=== PATIENT | female | born 1995 | race Caucasian/White ===

== ENCOUNTER → 2017-08-16 13:11 | Outpatient (CLI) | payer OTHER, SELFPAY ==
--- NOTE | 2017-08-16 13:15 | RAD_ITS ---
STUDY: X-RAY - LEFT ANKLE REASON FOR EXAM: Female, 22 years old. Injury with lateral ankle pain. TECHNIQUE: 3 view(s) of the ankle. COMPARISON: None. FINDINGS: Normal visualized distal tibia and fibula. Normal medial and lateral malleoli. Normal tibiotalar articulation and ankle mortise. Normal visualized talus and calcaneus. The visualized subtalar, talonavicular, calcaneocuboid and tarsal articulations are normal. The soft tissue structures are unremarkable. RAD/Ankle min 3 Views IMPRESSION: Normal x-ray examination of the ankle. Electronically Signed: Rene Bearden MD at 17:14 EDT , Service support ,
== END ==
PROVIDERS: Family Provider Pediatrics; PCP Pediatrics; Visit Provider Orthopaedic Surgery
DX: M25.572 Pain in left ankle and joints of left foot (principal)
CPT/HCPCS: 73610

== ENCOUNTER → 2017-09-06 16:25 | Outpatient (CLI) | payer OTHER, SELFPAY ==
--- NOTE | 2017-09-06 16:29 | MRI_ITS ---
STUDY: MRI LEFT ANKLE WITHOUT CONTRAST REASON FOR EXAM: Swelling and cracking, chronic left ankle sprains, symptoms for one year. TECHNIQUE: Standardized fat and water weighted pulse sequences were obtained in all 3 orthogonal planes. COMPARISON: Radiographs 08/16/2017. FINDINGS: Normal subcutis adipose space. Normal posterior tibialis tendon. Normal flexor digitorum longus tendon. Normal flexor hallucis longus tendon. Normal peroneus longus and brevis tendons. Normal tibialis anterior tendon. Normal extensor hallucis longus tendon. Normal extensor digitorum longus tendons. Normal Achilles tendon and teno-osseous insertion. Normal plantar fascia. Normal plantar calcaneal tubercles. Normal intrinsic muscles of the rearfoot. Normal distal tibiofibular syndesmotic ligamentous complex. There is a chronic sprain of the anterior talofibular ligament with thickening near the fibular attachment (inversion recovery axial bullae images 12, 13). Normal calcaneofibular and posterior talofibular ligaments. There is mild soft tissue fullness in the anterolateral gutter (T2 axial images 13, 14). Normal subtalar ligaments and sinus tarsi. Normal deltoid ligamentous complexes. Normal plantar calcaneonavicular (spring) ligament. There is a minimal volume of fluid in the tibiotalar articulation. Normal talar dome. There is a minimal volume of fluid in the posterior subtalar articulation. Normal talonavicular articulation. Normal calcaneocuboid articulation. Normal navicular-cuneiform articulations. MRI/Lower Ext Joint Only (Routine) IMPRESSION: Chronic sprain of the anterior talofibular ligament. Mild soft tissue fullness in the anterolateral gutter, a possible MRI manifestation of anterolateral impingement. Electronically Signed: Aurelio Chaves MD at 9:53 EDT Tel , Service support ,
== END ==
PROVIDERS: Family Provider Pediatrics; PCP Pediatrics; Visit Provider Orthopaedic Surgery
DX: S93.492A Sprain of other ligament of left ankle, initial encounter (principal); X58.XXXA Exposure to other specified factors, initial encounter
CPT/HCPCS: 73721

== ENCOUNTER 2017-10-12 11:56 | Day surgery (SDC) | payer OTHER, SELFPAY ==
[2017-10-12 12:14] VITALS: BP 134/75; PULSE 75; RESP 16; TEMP 36.6; O2SAT 100; BMI 21.2
[2017-10-12 12:17] LABS: Internal QC Validated? YES +Cl - CLEAR BKGD
[2017-10-12 12:21] LABS: Pregnancy, Urine Negative Negative
[2017-10-12] MEDS: Cefazolin 2 GM in 0.9% Normal Saline 100 ML IV (13:04)
--- NOTE | 2017-10-12 13:08 | PCM.DC.ORTHO ---
Discharge Diet: No Restrictions - leave splint in place and keep clean and dry; elevate toes above nose, call with concerns, start asa 325 bid, milk of magnesia as indicated for constipation from pain meds, Discharge Activity: May Not Drive May shower in (days): 1 Ice area for (Minutes): 20 - Every hour while awake. Weight Bearing Status: Weight bearing as tolerated Keep extremity elevated above heart level: Operative Extremity Call your doctor if your incision/area has: Continuous Slow Oozing, Sudden Increased Bleeding, Increased Pain/ Swelling, Increased Redness, Foul Smelling Discharge Call your doctor if you observe: Fever of 101 or Higher, Coldness, Increased Pain, Numbness or Tingling, Change in Color, Calf discomfort Allergies/Adverse Reactions: Allergies adhesive tape Allergy (Verified 10/05/17 12:04) Rash Medications to take at Discharge Lisdexamfetamine Dimesylate [Vyvanse] 30 mg PO DAILY 10/05/17 Norelgestromin/Ethin.estradiol [Xulane Patch] 1 each TD UD 10/05/17 Hydrocodone Bitart/Apap 5-325 [Baisden 5MG-325MG] 1 - 2 tablet PO Q6H PRN PRN 5 Days #40 tablet 10/12/17 The following prescriptions were given: Hydrocodone Bitart/Apap 5-325 [Baisden 5MG-325MG] 1 - 2 tablet PO Q6H PRN PRN 5 Days #40 tablet PRN Reason: Pain Primary Care Physician: Flakito Barrios MD [Primary Care Provider] - Test Results: Test results from this visit will be discussed in further detail at your follow-up appointment, if applicable. Please Follow Up With: Cecilia Bermudez, - [phone]
--- NOTE | 2017-10-12 13:09 | PCM.OPRPT ---
Report of Operation Date of Procedure: 10/12/17 Pre-Operative Diagnosis: left ankle instability, synovitis Post-Operative Diagnosis: same Surgery/Procedure Performed:: left ankle arthroscopy, synovectomy, lateral ankle reconstruction with arthrex internal brace Type of Anesthesia:: General Specimen's removed: none Estimated Blood Loss (mL): minimal Fluids Replaced: 1000ml lr Description of Procedure: Preop note Patient is a 22-year-old female with continued left ankle instability. Patient is in quite extensive conservative treatment however is still having instability in the ankle giving out while she is trying pulled out. MRI confirms ATFL tear and some synovitis. Risks benefits and alternatives surgery discussed with patient. Risks including but not limited to blood loss, blood clot, infection, neurovascular injury, failure procedure, loss of life and loss of limb. Patient is aware like proceed with a left ankle arthroscopy internal brace reconstruction is indicated. Operative note Patient seen and examined preoperative holding area. Left ankle is marked. Patient brought to the operating placed supine on the operating table. Sign, anesthesia, antibiotics were administered. Left leg was prepped and draped in usual sterile fashion with a tourniquet around her upper thigh. We placed a bump under her left lateral thigh to internally rotate her leg as well as some towels underneath her legs elevated. We then prepped and draped after the above is completed. We marked out our anterior medial anterolateral lateral portal placement for arthroscopy. We insufflated the ankle joint with 30 cc of normal saline from the aunt just the anteromedial portal. We used 11 blade to make the skin and then mosquitoes to dissect down to the joint Through the joint capsule he did receive E flow. We then began our diagnostic arthroscopy. There were no chondral lesions she has some synovitis in the anterior lateral recess. We created an anterior lateral portal under direct visualization. We gently resected back the synovitis that was in the anterolateral recess. We then moved her ankle reconstruction. The leg was elevated exsanguinated and tourniquet was raised her pressure of 250 torr. We then marked out just anterior to the fibula about a 4 cm incision extending about 2 7/2 cm proximal to the distal fibula and wrapping around the distal fibula just slightly. We used a 15 blade and then was cut the skin dissected out tenotomy syllable of the subcutaneous tissue was then debrided further we then did our internal brace and with the talus in standard fashion. We placed an 18-gauge spinal needle and used fluoroscopy to and assess appropriate position which we did have. We then resected the ATFL off the anterior lateral border of the distal fibula. We then placed 2 fiber tacks 1 proximal and 1 distal to our 3 5 fibula component of the internal brace. We then sewed down the ATFL with the foot dorsiflexed and everted. Oversewed the 5 attacks down to the end did increase our stability of the joint despite imbricating the ATFL. We then placed our fibular portion of the internal brace measuring appropriately and then placing the anchor into the distal fibula and appropriate tensioning. We truncated the remaining suture limbs. We then used the 2 fiber tack stitches on both proximally and distally and then imbricated the tissue over top for further tightness for lateral ankle reconstruction. The incision was irrigated with copious amounts of sterile saline. The subcuticular layer was closed with 3-0 Vicryl and the skin with 4-0 running Monocryl the portals were closed with interrupted nylon stitches. The patient tourniquet was deflated for total working time of 60 minutes. Sterile dressings were applied. Posterior splint was applied to the left ankle as well. The patient tolerated procedure well there are no comp occasions patient transferred to recovery room in stable condition. Postoperative note Nonweightbearing left ankle Hospital has prescriptions as Pictures given to family next Call with increased pain numbness tingling further issues arise Follow-up in 2 weeks This note was generated with [employer] dictation software. It may contain incorrect words, spelling, and punctuation that were not noted in checking the note before signing.
[2017-10-12] MEDS: Mupirocin Ointment 22gm Tube 1 APPLIC (14:28)
[2017-10-12] MEDS: Bupiv/Epi 0.5% Mpf 30 ML Vial (14:44)
[2017-10-12 15:01] VITALS: BP 123/98; BP 134/75; PULSE 104; RESP 16; TEMP 37.1; O2SAT 100
[2017-10-12 15:15] VITALS: BP 111/73; BP 134/75; PULSE 66; RESP 16; O2SAT 100
[2017-10-12 15:30] VITALS: BP 117/72; BP 134/75; PULSE 61; RESP 16; O2SAT 100
[2017-10-12 15:38] VITALS: BP 115/68; BP 134/75; PULSE 62; RESP 16; TEMP 37.3; O2SAT 100
[2017-10-12] MEDS: HYDROcodone Bitartrate/Apap 5/325 Tablet PO (16:41)
[2017-10-12 17:17] VITALS: BP 108/62; BP 134/75; PULSE 66; RESP 16; TEMP 36.8; O2SAT 100
== END 2017-10-12 17:27 | disposition home or self-care (01) ==
LOC: SDC 11:58
PROVIDERS: Family Provider Pediatrics; PCP Pediatrics; Visit Provider Orthopaedic Surgery
PROC: (CPT 27698; principal; 2017-10-12 13:30)
DX: M25.372 Other instability, left ankle (principal); M25.872 Other specified joint disorders, left ankle and foot; M65.872 Other synovitis and tenosynovitis, left ankle and foot
CPT/HCPCS: 01922; 27698; 29895; 73600; 76000; 81025; C1713; J7120; J2405

== ENCOUNTER → 2018-02-01 13:47 | Outpatient (CLI) | payer OTHER, SELFPAY ==
[2018-02-01 17:30] LABS: Chlamydia Trachomatis by PCR Negative (Negative); Neisserai gonorrhoeae by PCR Negative (Negative); Probe Check PASS; Sample Adequacy Control PASS; Specimen Processing Control PASS
--- OUTSIDE RECORDS SUMMARY | 2018-05-05 20:38 | XMS RPT_ITS ---
:1995 Author Organization OHIP Care Team Providers Name Role Phone JOLANTA KING) Attending Unavailable Lupis Valente Attending Unavailable Cecilia Bermudez Attending Unavailable Playl, Flakito Referring Unavailable Playl, Flakito Primary Care Unavailable Cecilia Bermudez Attending Unavailable Cecilia Bermudez Referring Unavailable Playl, Flakito Primary Care Unavailable Chicorelli, Cecilia Attending Unavailable Chicorelli, Cecilia Referring Unavailable Playl, Flakito Primary Care Unavailable Chicorelli, Cecilia Attending Unavailable Playl, Flakito Referring Unavailable Playl, Flaktio Primary Care Unavailable Chicorelli, Cecilia Attending Unavailable Chicorelli, Cecilia Referring Unavailable Playl, Flakito Primary Care Unavailable Chicorelli, Cecilia Attending Unavailable Playl, Flakito Referring Unavailable Playl, Flakito Primary Care Unavailable Chicorelli, Cecilia Attending Unavailable Wayt, Eduar Attending Unavailable Playl, Flakito Referring Unavailable Wayt, Eduar Attending Unavailable Playl, Flakito Referring Unavailable PROBLEMS PROBLEMS DATE TYPE CONDITION / CODE ATTENDING STATUS SOURCE 02/01/2018 Unknown Z11.3 - Encounter Renebrenda Lupis Active [facility] for screening for Community infections with a Hospital predominantly sexual Repository mode of transmission / Z11.3(ICD-10) 11/19/2017 Unknown Z98.890 - Other Eduar Patiño Active [facility] specified Community postprocedural Hospital states / Repository Z98.890(ICD-10) 11/19/2017 Unknown Z47.89 - Encounter Eduar Patiño Active [facility] for other orthopedic Community aftercare / Hospital Z47.89(ICD-10) Repository 10/12/2017 Unknown G89.18 - Other acute Chicorelli, Active [facility] postprocedural pain [facility] / G89.18(ICD-10) Hospital Repository 11/01/2017 Unknown M25.372 - Other Chicorelli, Active [facility] instability, left [facility] ankle / Hospital M25.372(ICD-10) Repository 11/01/2017 Unknown M25.872 - Other Chicorelli, Active [facility] specified joint [facility] disorders, left Hospital ankle and foot / Repository M25.872(ICD-10) 11/01/2017 Unknown M65.872 - Other Chicorelli, Active [facility] synovitis and [facility] tenosynovitis, left Hospital ankle and foot / Repository M65.872(ICD-10) 08/16/2017 Unknown M25.572 - Pain in Chicorelli, Active [facility] left ankle and [facility] joints of left foot Hospital / M25.572(ICD-10) Repository 08/16/2017 Unknown S93.492A - Sprain of Chicorelli, Active [facility] other ligament of Cecilia [facility] left ankle, initial Hospital encounter / Repository S93.492A(ICD-10) PROCEDURES PROCEDURES No Procedure Records FoundRESULTS RESULTS PROGRESS Observed: 02/01/2018 Status: COMPLETED Source: [place] 1:03 PM [facility] REPOSITORY HNO ID: [id number] Author: Jolanta Gutierrez) Christine Service: (none) Author Type: Physician Type: Progress Notes Filed: 02/02/2018 11:54 AM Note Text: FOLLOW UP VISIT PEDIATRIC ADHD SERVICE DATE: 02/01/2018 Ashley Lee is a 22 year old female who presents with self for follow up visit for ADHD. Currently taking Vyvanse 30 mg. The medication is helping dramatically. Current associated symptoms include problems focusing and are mild. Context: school. 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 Resources: none PDMP website checked and validated. All prescriptions have been APPROPRIATELY filled. No suspicious activity was identified. 02/01/2018 by Jolanta King MD PAST MEDICAL HISTORY Diagnosis Date - Acne 10/29/2014 - Attention deficit hyperactivity disorder (ADHD), predominantly inattentive type 05/28/2016 - Bee sting allergy 08/20/2013 - Closed fracture of unspecified part of humerus age 7yr, age 12 yr Resolved. Arm fracture (right) age 7 yr. Surgery required. Left arm age 12 yr. - Concussion 11/30/2013 - Menarche 2011 Age 16 - Migraine without status migrainosus, not intractable 12/31/2014 - Palpitations 2007 Resolved. Cardiology eval negative. - Patellofemoral syndrome 08/20/2013 Resolved. By outside diagnosis. Wears knee brace (sometimes) - Pes planus (flat feet) 06/02/2011 - PMH - PAST MEDICAL HISTORY OF 05-29-2002 normal color vision ROS for medication side effects: Abdominal pain: no Appetite problems: no Drowsiness: no Sleep problems: no Headaches: yes (ongoing) Depression: no Suicidal ideation: no Chest pain: no Palpitations: no Syncope: no PHYSICAL EXAM: BP 108/70 Pulse 68 Temp 36.4 ?C (97.6 ?F) (Temporal Artery) Resp 16 Ht 162.6 cm (5' 4) Wt 57 kg (125 lb 9.6 oz) BMI 21.56 kg/m? Blood pressure percentiles are not available for patients who are 18 years or older. General: Well developed, No acute distress Neck: supple and no adenopathy Lungs: clear to auscultation bilaterally, good air exchange, no retractions Heart: Normal rate, regular rhythm, no murmur Skin: Normal color, texture and turgor. No rashes. Assessment: 22 year old female with ADHD with optimization of symptoms and without significant medication side effects. Plan: - Continue current medication. - Follow up in 3-6 months for routine ADHD follow up SIGNATURE: Jolanta King MD PATIENT NAME: Ashley Lee DATE: February 01, 2018 TIME: 1:03 PM CNOV Observed: 02/01/2018 Status: COMPLETED Source: [place] 1:00 PM [facility] REPOSITORY Office Visit (PEDSWS) ASHLEY LEE ([id number]) 1995 F Date Time Provider Department 02/01/18 1:00 PM JOLANTA KING) PEDSWS During your visit today, we recorded the following information about you: Temperature Pulse Respiration Blood pressure 97.6 degrees 68/minute 16/minute 108/70 Weight Height 57 kg 1.626 m Jolanta King MD 02/02/2018 11:54 AM Signed FOLLOW UP VISIT PEDIATRIC ADHD SERVICE DATE: 02/01/2018 Ashley Lee is a 22 year old female who presents with self for follow up visit for ADHD. Currently taking Vyvanse 30 mg. The medication is helping dramatically. Current associated symptoms include problems focusing and are mild. Context: school. She is a dilan at college, biology major. Resources: none PDMP website checked and validated. All prescriptions have been APPROPRIATELY filled. No suspicious activity was identified. 02/01/2018 by Jolanta King MD PAST MEDICAL HISTORY Diagnosis Date - Acne 10/29/2014 - Attention deficit hyperactivity disorder (ADHD), predominantly inattentive type 05/28/2016 - Bee sting allergy 08/20/2013 - Closed fracture of unspecified part of humerus age 7yr, age 12 yr Resolved. Arm fracture (right) age 7 yr. Surgery required. Left arm age 12 yr. - Concussion 11/30/2013 - Menarche 2011 Age 16 - Migraine without status migrainosus, not intractable 12/31/2014 - Palpitations 2007 Resolved. Cardiology eval negative. - Patellofemoral syndrome 08/20/2013 Resolved. By outside diagnosis. Wears knee brace (sometimes) - Pes planus (flat feet) 06/02/2011 - PMH - PAST MEDICAL HISTORY OF 05-29-2002 normal color vision ROS for medication side effects: Abdominal pain: no Appetite problems: no Drowsiness: no Sleep problems: no Headaches: yes (ongoing) Depression: no Suicidal ideation: no Chest pain: no Palpitations: no Syncope: no PHYSICAL EXAM: BP 108/70 Pulse 68 Temp 36.4 ?C (97.6 ?F) (Temporal Artery) Resp 16 Ht 162.6 cm (5' 4) Wt 57 kg (125 lb 9.6 oz) BMI 21.56 kg/m? Blood pressure percentiles are not available for patients who are 18 years or older. General: Well developed, No acute distress Neck: supple and no adenopathy Lungs: clear to auscultation bilaterally, good air exchange, no retractions Heart: Normal rate, regular rhythm, no murmur Skin: Normal color, texture and turgor. No rashes. Assessment: 22 year old female with ADHD with optimization of symptoms and without significant medication side effects. Plan: - Continue current medication. - Follow up in 3-6 months for routine ADHD follow up SIGNATURE: Joalnta King MD PATIENT NAME: Ashley Lee DATE: February 01, 2018 TIME: 1:03 PM Jolanta King MD 02/01/2018 1:03 PM Signed 5 to Go!TM Healthy Kids Inside AND Out 5 Eat FIVE fruits and veggies a day 4 Give and get FOUR compliments a day 3 Consume THREE calcium products a day 2 Limit media time to TWO hours a day 1 Get at least ONE hour of exercise a day 0 Consume ZERO sugar-sweetened drinks Go! Be healthy, inside and out! 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 Reason For Visit History Recorded Visit Diagnosis:Attention deficit hyperactivity disorder (ADHD), predominantly inattentive type [F90.0] Order(s):lisdexamfetamine (VYVANSE) 30 mg capsuleTake 1 capsule by mouth every morning for 30 days. Earliest Fill Date: 02/01/18Disp: 30 capsuleRfl: 0 Prescriptions as of 02/01/2018 Sig: EPINEPHRINE 0.3 MG/0.3 ML INJ* Inject 0.3 mL intramuscularly* LISDEXAMFETAMINE 30 MG CAPSULE Take 1 capsule by mouth every* PEDIATRIC MULTIVITAMIN GUMMY * Take 2 tablets by mouth once * TOPIRAMATE 25 MG TABLET Take 1 tablet by mouth once d* XULANE 150 MCG-35 MCG/24 HR T* Problem List As Of Date 02/01/2018 Noted Resolved Other premature beats [I49.49] INVALID FOR*08/20/2013 Pes planus (flat feet) [M21.41, M21.42] INVALID FOR* Bee sting allergy [Z91.030] INVALID FOR* Patellofemoral syndrome [M22.2X9] INVALID FOR*10/29/2014 More... Acne [L70.9] INVALID FOR* Migraine without status migrainosus, not intrac*INVALID FOR* Concussion [S06.0X9A] INVALID FOR* Attention deficit hyperactivity disorder (ADHD)*INVALID FOR* Other instructions from your clinician: 5 to Go!TM Healthy Kids Inside AND Out 5 Eat FIVE fruits and veggies a day 4 Give and get FOUR compliments a day 3 Consume THREE calcium products a day 2 Limit media time to TWO hours a day 1 Get at least ONE hour of exercise a day 0 Consume ZERO sugar-sweetened drinks Go! Be healthy, inside and out! [email or web address] Prescriptions ordered this encounter Disp Refills Start End LISDEXAMFETAMINE 30 MG CAPSULE 30 c* 0 02/01/2018 03/03/2018 Class: Print RX Route: ORAL Sig: Take 1 capsule by mouth every morning for 30 days. Earliest Fill Date: 02/01/18 Medications Discontinued During This Encounter lisdexamfetamine (VYVANSE) 30 mg cap* 30 c* 0 12/30/2017 02/01/2018 Class: Print RX Route: ORAL Sig: Take 1 capsule by mouth every morning for 30 days. Earliest Fill Date: 12/30/17 Disc: Reason for discontinue is not on file. Encounter Status:Closed by JOLANTA KING on 02/02/18 CT/NG [facility] BY PCR Collected: 02/01/2018 Status: F Source: [place] 11:15 AM [facility] REPOSITORY TYPE CODE TESTS RESULT OUT OF RANGE REFERENCE UNITS LAB L8200.2100 Negative Normal Chlam Negative Trac PCR LAB L8200.2200 Negative Normal NG by Negative PCR Performed By: #### L8200.2000 #### [facility] [address] [place], [place], [id number] ORTHOPEDIC VISIT Observed: 01/16/2018 Status: F Source: [place] RE[place] 4:41 PM [facility] REPOSITORY [facility] Orthopaedics AND Sports Medicine [address] [place] [id number] OFFICE VISIT Date of Service: 01/13/18 MR#: [id number] Acct: [id number] Name: ASHLEY LEE Rep #: [id number] : 1995 Provider: DOMINGO Patiño Age/Sex: 22/F [place] [facility] [place] [place]: Signed Intake Intake Visit Reasons: LEFT ANKLE Is patient in pain?: No Allergies adhesive tape Allergy (Verified 10/05/17 12:04) Rash Medications Lisdexamfetamine Dimesylate [Vyvanse] 30 mg PO DAILY 10/05/17 [History Confirmed 10/05/17] Norelgestromin/Ethin.estradiol [Xulane Patch] 1 ea TD UD 10/05/17 [History Confirmed 10/05/17] Hydrocodone Bitart/Apap 5-325 [[place] 5MG-325MG] 1 - 2 tab PO Q6H PRN PRN 5 Days #40 tab 10/12/17 [Rx] PFSH Social History Smoking Status: Never smoker HPI LEFT ANKLE: Details: ASHLEY LEE is a 22 year old F here today for f/u 10/12. She is not having any pain or instability and has returned to all normal activies and is vaulting with no concerns. TOO Amanda Reports as per HPI, Denies joint pain, Denies joint swelling, Denies stiffness, Denies limited joint movement, Denies muscle weakness, Denies abnormal walking Neuro No abnormal walking Ortho Exam Left Ankle Skin: Yes healed; no Ecchymosis, Soft Tissue Swelling or Erythema Exam: No Ecchymosis, Soft tissue swelling, Erythema, TTP Medial Malleolus, TTP Lateral Malleolus or TTP ATFL ROM: No pain with ROM or crepitus with ROM Anterior Drawer: 0 Tests: Johnson Test: 1 Motor: Ankle Dorsiflextion: 5, Ankle Plantar Flexion: 5, Ankle Eversion: 5, Ankle Inversion: 5 Sensation: Superficial Peroneal Nerve: I, Tibial Nerve: I, Sural Nerve: I, Saphenous Nerve: I ANKLE: Patient has excellent ROM of the ankle. There is still some decrease of ankle inversion which is a desired result of internal fixation brace. Her strength is definitely back to normal 5/5. Patient is neurovascularly intact today. There are no evident abnormalities of the skin. Assessment AND Plan Problems 1. Orthopedic aftercare Z47.89 2. Status post repair of ligament of ankle Z98.890 Plan At this time patient is 3 months postop from a internal brace fixation of the ankle. Patient has normal range of motion and strength of the ankle at this time. She has been vaulting without any pain stating that it will get a little sore after if she overdoes it but has no problems while running or actually vaulting. He has not been wearing a brace stating that she does not feel like she has needed it. She continues to work with the management trainer at school on ankle strength. I did discuss and stressed the importance of continued strengthening of the ankle using a lot of band work as well as proprioception with balance boards/bosu balls. He can continue to ice the ankle after activities as needed. She can notify our office of any increasing pains, laxity, or any other new signs or symptoms in the meantime. Otherwise she can continue with participation in all activities without restriction as tolerated. This note was generated with Dragon dictation software. It may contain incorrect words, spelling, and punctuation that were not noted in checking the note before signing. Coding Level of Care Code Off vis,est,level 2 Diagnoses Orthopedic aftercare Z47.89 Status post repair of ligament of ankle Z98.890 01/16/18 1641 <Electronically signed by Eduar LANE> Date Eduar LANE Cosigner Signature: Date (if applicable) CC: ORTHOPEDIC VISIT Observed: 11/18/2017 Status: F Source: [place] REPORT 3:57 PM [facility] REPOSITORY [facility] Orthopaedics AND Sports Medicine [address] [place] [address] OFFICE VISIT Date of Service: 11/18/17 MR#: [id number] Acct: [id number] Name: ASHLEY LEE Rep #: [id number] : 1995 Provider: DOMINGO Patiño Age/Sex: 22/F [place] [facility] [place] [place]: Signed Intake Intake Visit Reasons: LEFT ANKLE Is patient in pain?: No Allergies adhesive tape Allergy (Verified 10/05/17 12:04) Rash Medications Lisdexamfetamine Dimesylate [Vyvanse] 30 mg PO DAILY 10/05/17 [History Confirmed 10/05/17] Norelgestromin/Ethin.estradiol [Xulane Patch] 1 ea TD UD 10/05/17 [History Confirmed 10/05/17] Hydrocodone Bitart/Apap 5-325 [[place] 5MG-325MG] 1 - 2 tab PO Q6H PRN PRN 5 Days #40 tab 10/12/17 [Rx] PFSH Social History Smoking Status: Never smoker HPI LEFT ANKLE: Details: ASHLEY LEE is a 22 year old F here today for f/u 10/12 left ankle internal brace fixation. She presents fwb in boot with no complaints of pain, swelling or instability. 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 She states that she is walking around her apartment without the boot in the evenings. Denies numbness, tingling or other associated symptoms. ROS [facility] [place] Reports as per HPI, Denies joint pain, Denies joint swelling, Denies stiffness, Denies limited joint movement, Denies muscle weakness Ortho Exam Left Ankle Skin: Yes healed; no Ecchymosis, Soft Tissue Swelling or Erythema Exam: No Ecchymosis, Soft tissue swelling, Erythema, TTP Lateral Malleolus, TTP ATFL or TTP Medial Malleolus ROM: No pain with ROM or crepitus with ROM Anterior Drawer: 0 Tests: Johnson Test: 1 Motor: Ankle Dorsiflextion: 5, Ankle Plantar Flexion: 5, Ankle Eversion: 5, Ankle Inversion: 5 Sensation: Superficial Peroneal Nerve: I, Tibial Nerve: I, Sural Nerve: I, Saphenous Nerve: I ANKLE: Patient has excellent ROM of the ankle. There is decreased ankle inversion which is a desired result of internal fixation brace. Her strength though appears to be back to normal 5/5. She has normal sensation of the ankle / foot with some decrease sensation directly on and around the incision site. There are no other skin changes noted at this time. Assessment AND Plan Problems 1. Status post repair of ligament of ankle Z98.890 2. Orthopedic aftercare Z47.89 Plan Patient appears to be doing very well at this time. She is not quite 6 weeks post surgery and her strength and ROm are coming along very well. At this time we are going to start to ween out of the boot over the next 1-2 weeks. She can begin to do some walking, to a faster walk, then to jogging over the next several weeks and progress as tolerated. We discussed that it is very typical to be 12 weeks before feeling full strength. She is to continue to work with her trainers on her rehab. ice and NSAID PRN. She should notify of any questions or changes. She is going to still need an ankle brace for participation in her track meets. Plan Detail Follow Up 6 Weeks Coding Level of Care Code Global Post Op Diagnoses Status post repair of ligament of ankle Z98.890 Orthopedic aftercare Z47.89 11/18/17 1557 <Electronically signed by Eduar LANE> Date Eduar LANE Cosigner Signature: Date (if applicable) CC: ORTHOPEDIC VISIT Observed: 10/27/2017 Status: F Source: [place] REPORT 1:13 PM [facility] REPOSITORY [facility] Orthopaedics AND Sports Medicine [address] [place] [id number] OFFICE VISIT Date of Service: 10/21/17 MR#: [id number] Acct: [id number] Name: ASHLEY LEE Rep #: [id number] : 1995 Provider: Cecilia Bermudez DO Age/Sex: 22/F [place] [facility] [place] [place]: Signed Intake Intake Visit Reasons: LEFT ANKLE Allergies adhesive tape Allergy (Verified 10/05/17 12:04) Rash Medications Lisdexamfetamine Dimesylate [Vyvanse] 30 mg PO DAILY 10/05/17 [History Confirmed 10/05/17] Norelgestromin/Ethin.estradiol [Xulane Patch] 1 ea TD UD 10/05/17 [History Confirmed 10/05/17] Hydrocodone Bitart/Apap 5-325 [[place] 5MG-325MG] 1 - 2 tab PO Q6H PRN PRN 5 Days #40 tab 10/12/17 [Rx] PFSH Social History Smoking Status: Never smoker HPI LEFT ANKLE: Details: ASHLEY LEE is a 22 year old F here today for follow up of ankle scope/ atfl reconstruction 10/12. no issues. no calf pain, fever, chills or other constitutional symptoms. has been using her crutches and non weight bearing. no complaints today. Ortho Exam Left Ankle Skin: No CDI, healing, healed, suture/shira removed, wound cleaned, wound care, Ecchymosis, Soft Tissue Swelling or Erythema Exam: No Ecchymosis, Soft tissue swelling or Erythema Tests: Johnson Test: 1, Squeeze Test: 1 Motor: Ankle Dorsiflextion: 5, Ankle Plantar Flexion: 5, Ankle Eversion: 5, Ankle Inversion: 5, EHL: 5 Sensation: Deep Peroneal Nerve: I, Superficial Peroneal Nerve: I, Tibial Nerve: I, Sural Nerve: I, Saphenous Nerve: I Pulses: Dorsalis Pedis: 2, Posterior Tibial: 2 Assessment AND Plan Plan patient is 2 weeks postop ankle reconstruction. doing well from postop standpoint. Personally reviewed the surgical images if available, the surgery procedure and reviewed the post op care instructions. Monitor for signs of infection, redness, warmth, swelling in excess, drainage, opening of incision site/sites, and/or fever. patient is happy with he progress. will transition into boot and weight bearing today. gave rx for PT for strengthening/proprioception. follow up in 4 weeks or sooner if issues arise. Follow up in 4 wks or sooner if pain, swelling, numbness or associated symptoms, or concerns develop. All questions answered. Patient in agreement of plan. Coding Level of Care Code Global Post Op 10/27/17 1313 <Electronically signed by Cecilia Bermudez DO> Date Cecilia Bermudez DO Cosigner Signature: Date (if applicable) CC: OPERATIVE REPORT Observed: 10/19/2017 Status: F Source: [place] 3:25 PM [facility] REPOSITORY [facility] [place] Medical Records Department [address] [place] [address] Operative Report 10/12/17 1309 MR#: [id number] Acct: [id number] Name: ASHLEY LEE Rep #: [id number] : 1995 22 From: Cecilia Bermudez DO PCP: Flakito Barrios MD Status[place] [facility] [place] [facility] [place] of Operation Date of Procedure: 10/12/17 Pre-Operative Diagnosis: left ankle instability, synovitis Post-Operative Diagnosis: same Surgery/Procedure Performed:: left ankle arthroscopy, synovectomy, lateral ankle reconstruction with arthrex internal brace Type of Anesthesia:: General Specimen's removed: none Estimated Blood Loss (mL): minimal Fluids Replaced: 1000ml lr Description of Procedure: Preop note Patient is a 22-year-old female with continued left ankle instability. Patient is in quite extensive conservative treatment however is still having instability in the ankle giving out while she is trying pulled out. MRI confirms ATFL tear and some synovitis. Risks benefits and alternatives surgery discussed with patient. Risks including but not limited to blood loss, blood clot, infection, neurovascular injury, failure procedure, loss of life and loss of limb. Patient is aware like proceed with a left ankle arthroscopy internal brace reconstruction is indicated. Operative note Patient seen and examined preoperative holding area. Left ankle is marked. Patient brought to the operating placed supine on the operating table. Sign, anesthesia, antibiotics were administered. Left leg was prepped and draped in usual sterile fashion with a tourniquet around her upper thigh. We placed a bump under her left lateral thigh to internally rotate her leg as well as some towels underneath her legs elevated. We then prepped and draped after the above is completed. We marked out our anterior medial anterolateral lateral portal placement for arthroscopy. We insufflated the ankle joint with 30 cc of normal saline from the aunt just the anteromedial portal. We used 11 blade to make the skin and then mosquitoes to dissect down to the joint Through the joint capsule he did receive E flow. We then began our diagnostic arthroscopy. There were no chondral lesions she has some synovitis in the anterior lateral recess. We created an anterior lateral portal under direct visualization. We gently resected back the synovitis that was in the anterolateral recess. We then moved her ankle reconstruction. The leg was elevated exsanguinated and tourniquet was raised her pressure of 250 torr. We then marked out just anterior to the fibula about a 4 cm incision extending about 2 7/2 cm proximal to the distal fibula and wrapping around the distal fibula just slightly. We used a 15 blade and then was cut the skin dissected out tenotomy syllable of the subcutaneous tissue was then debrided further we then did our internal brace and with the talus in standard fashion. We placed an 18-gauge spinal needle and used fluoroscopy to and assess appropriate position which we did have. We then resected the ATFL off the anterior lateral border of the distal fibula. We then placed 2 fiber tacks 1 proximal and 1 distal to our 3 5 fibula component of the internal brace. We then sewed down the ATFL with the foot dorsiflexed and everted. Oversewed the 5 attacks down to the end did increase our stability of the joint despite imbricating the ATFL. We then placed our fibular portion of the internal brace measuring appropriately and then placing the anchor into the distal fibula and appropriate tensioning. We truncated the remaining suture limbs. We then used the 2 fiber tack stitches on both proximally and distally and then imbricated the tissue over top for further tightness for lateral ankle reconstruction. The incision was irrigated with copious amounts of sterile saline. The subcuticular layer was closed with 3-0 Vicryl and the skin with 4-0 running Monocryl the portals were closed with interrupted nylon stitches. The patient tourniquet was deflated for total working time of 60 minutes. Sterile dressings were applied. Posterior splint was applied to the left ankle as well. The patient tolerated procedure well there are no comp occasions patient transferred to recovery room in stable condition. Postoperative note Nonweightbearing left ankle Hospital has prescriptions as Pictures given to family next Call with increased pain numbness tingling further issues arise Follow-up in 2 weeks This note was generated with isocket dictation software. It may contain incorrect words, spelling, and punctuation that were not noted in checking the note before signing. 10/19/17 1525 <Electronically signed by Cecilia Bermudez DO> Date Cecilia Bermudez DO CC: Cecilia Bermudez DO; Flakito Barrios MD Signed DISCHARGE INSTRUCTION Observed: 10/12/2017 Status: F Source: YURY 1:09 PM [facility] REPOSITORY [facility] Medical Records Department [address] [place] [address] Instructions for Home/Discharge Instructions 10/12/17 1308 MR#: [id number] Acct: [id number] Name: ASHLEY LEE Rep #: [id number] : 1995 22 From: Cecilia Bermudez DO PCP: Flakito Barrios MD Status: REG [facility] Discharge Diet: No Restrictions - leave splint in place and keep clean and dry; elevate toes above nose, call with concerns, start asa 325 bid, milk of magnesia as indicated for constipation from pain meds, Discharge Activity: May Not Drive May shower in (days): 1 Ice area for (Minutes): 20 - Every hour while awake. Weight Bearing Status: Weight bearing as tolerated Keep extremity elevated above heart level: Operative Extremity Call your doctor if your incision/area has: Continuous Slow Oozing, Sudden Increased Bleeding, Increased Pain/ Swelling, Increased Redness, Foul Smelling Discharge Call your doctor if you observe: Fever of 101 or Higher, Coldness, Increased Pain, Numbness or Tingling, Change in Color, Calf discomfort Allergies/Adverse Reactions: Allergies adhesive tape Allergy (Verified 10/05/17 12:04) Rash Medications to take at Discharge Lisdexamfetamine Dimesylate [Vyvanse] 30 mg PO DAILY 10/05/17 Norelgestromin/Ethin.estradiol [Xulane Patch] 1 each TD UD 10/05/17 Hydrocodone Bitart/Apap 5-325 [[place] 5MG-325MG] 1 - 2 tablet PO Q6H PRN PRN 5 Days #40 tablet 10/12/17 The following prescriptions were given: Hydrocodone Bitart/Apap 5-325 [F[place] 5MG-325MG] 1 - 2 tablet PO Q6H PRN PRN 5 Days #40 tablet PRN Reason: Pain Primary Care Physician: Flakito Barrios MD [Primary Care Provider] - Test Results: Test results from this visit will be discussed in further detail at your follow-up appointment, if applicable. Please Follow Up With: Cecilia Bermudez DO - [phone] 10/12/17 1309 <Electronically signed by Cecilia Bermudez DO> Date Cecilia Bermudez DO CC: Flakito Barrios MD ,URINE Collected: 10/12/2017 Status: F Source: YURY 12:07 PM [facility] REPOSITORY TYPE CODE TESTS RESULT OUT OF REFERENCE UNITS RANGE LAB L400.8000 Negative Normal HCGUQUAL Negative Result Comment: Very dilute urine specimens, as indicated by a low specific gravity, may not contain sales representative gas service levels of hCG. If is still suspected, a first morning urine specimen should be collected 48 hours later and tested. Performed By: #### L400.7600 #### [facility] [address] [place], [address] ANKLE 2 VIEWS Observed: 10/12/2017 Status: F Source: YURY 7:38 AM [facility] REPOSITORY [facility] Imaging Services [address] [place] [address] Ankle 2 Views MR#: [id number] Acct: [id number] Name: ASHLEY LEE Rep #: [id number] : 1995 F 22 From: Aurelio Chaves MD PCP: Flakito Barrios MD Status: [facility] Study: Ankle 2 Views Date of Exam: 10/12/17 Exam# [id number] Ordering Dr: Cecilia Bermudez DO STUDY: X-RAY - LEFT ANKLE REASON FOR EXAM: Arthroscope with internal pinning TECHNIQUE: A single fluoroscopic view of the ankle. COMPARISON: Radiographs 08/16/2017. FINDINGS: There is an instrument at the lateral aspect of the hindfoot. Electronically Signed: Aurelio Chaves MD at 15:58 EDT Tel , Service support , RAD/Ankle 2 Views CC: Cecilia Bermudez DO; Flakito Barrios MD Tunneling Machine Operator: Signed ORTHOPEDIC VISIT Observed: 09/20/2017 Status: F Source: YURY REPORT 10:28 AM [facility] REPOSITORY [facility] Orthopaedics AND Sports Medicine [address] [address] OFFICE VISIT Date of Service: 09/20/17 MR#: [id number] Acct: [id number] Name: ASHLEY LEE Rep #: [id number] : 1995 Provider: Cecilia Bermudez DO Age/Sex: 22/F [place] [facility] [place] [place]: Signed Intake Intake Visit Reasons: LEFT ANKLE Allergies No Known Allergies Allergy (Verified 08/16/17 13:09) Medications cetirizine 10 mg tablet 10 mg PO QDAY 08/16/17 [History Confirmed 08/16/17] PFSH Social History Smoking Status: Never smoker HPI LEFT ANKLE: Details: ASHLEY LEE is a 22 year old F here today for left ankle MRI f/u. She continues to have discomfort and instability. She is not wearing a brace but continues to work on strengthening. Denies numbness, tingling or other associated symptoms. No swelling. Ortho Exam Left Ankle Skin: Yes CDI Contralateral Normal: Yes Exam: Yes TTP ATFL; no TTP Deltoid Ligament ROM: Yes pain with ROM Anterior Drawer: 2 Assessment AND Plan 1. Left ankle instability M25.372 Plan Personally reviewed the MRI and explained that she has chronic ATFL sprain and lateral ankle impingement. Her treatment options are do nothing, PT, bracing or surgery with internal bracing. There is about a three month rtp. She would be in a splint nwb for two weeks and boot for a couple weeks as PT would begin. Answered patients questions from her ATC, she can lift as soon as she wants, reviewed complications. She should stop her control today and will have her on Asp 325 bid post op . Reviewed the pre-operative plans with the patient. Risks and benefits of the procedure were fully explained, including but not limited to infection, neurovascular injury, continued pain, arthritis, stiffness, need for further surgery, re-injury, DVT, PE, general risks of anesthesia, and loss of limb or life. The patient understands all the risks and does wish to proceed with written consent. Follow up post op or sooner if pain, swelling, numbness or associated symptoms, or concerns develop. All questions answered. Patient in agreement of plan. 2. Impingement of left ankle joint M25.872 Coding Level of Care Code Off vis,est,level 4 Diagnoses Left ankle instability M25.372 Impingement of left ankle joint M25.872 09/20/17 1028 <Electronically signed by Cecilia Bermudez DO> Date Cecilia Bermudez DO Cosigner Signature: Date (if applicable) CC: LOWER EXT JOINT ONLY Observed: 09/06/2017 Status: F Source: YURY (ROUTINE) 4:29 PM [facility] REPOSITORY [facility] Imaging Services [address] [place], [place] [address] [address] Lower Ext Joint Only (Routine) MR#: [id number] Acct: [id number] Name: ASHLEY LEE Rep #: [id number] : 1995 F 22 From: Aurelio Chaves MD PCP: Flakito Barrios MD Status: REG CLI Study: Lower Ext Joint Only (Routine) Date of Exam: 09/06/17 Exam# [id number] Ordering Dr: Cecilia Bermudez DO STUDY: MRI LEFT ANKLE WITHOUT CONTRAST REASON FOR EXAM: Swelling and cracking, chronic left ankle sprains, symptoms for one year. TECHNIQUE: Standardized fat and water weighted pulse sequences were obtained in all 3 orthogonal planes. COMPARISON: Radiographs 08/16/2017. FINDINGS: Normal subcutis adipose space. Normal posterior tibialis tendon. Normal flexor digitorum longus tendon. Normal flexor hallucis longus tendon. Normal peroneus longus and brevis tendons. Normal tibialis anterior tendon. Normal extensor hallucis longus tendon. Normal extensor digitorum longus tendons. Normal Achilles tendon and teno-osseous insertion. Normal plantar fascia. Normal plantar calcaneal tubercles. Normal intrinsic muscles of the rearfoot. Normal distal tibiofibular syndesmotic ligamentous complex. There is a chronic sprain of the anterior talofibular ligament with thickening near the fibular attachment (inversion recovery axial bullae images 12, 13). Normal calcaneofibular and posterior talofibular ligaments. There is mild soft tissue fullness in the anterolateral gutter (T2 axial images 13, 14). Normal subtalar ligaments and sinus tarsi. Normal deltoid ligamentous complexes. Normal plantar calcaneonavicular (spring) ligament. There is a minimal volume of fluid in the tibiotalar articulation. Normal talar dome. There is a minimal volume of fluid in the posterior subtalar articulation. Normal talonavicular articulation. Normal calcaneocuboid articulation. Normal navicular-cuneiform articulations. MRI/Lower Ext Joint Only (Routine) IMPRESSION: Chronic sprain of the anterior talofibular ligament. Mild soft tissue fullness in the anterolateral gutter, a possible MRI manifestation of anterolateral impingement. Electronically Signed: Aurelio Chaves MD at 9:53 EDT Tel , Service support , CC: Cecilia Bermudez DO; Flakito Barrios MD Tunneling Machine Operator: Signed ORTHOPEDIC VISIT Observed: 08/16/2017 Status: F Source: YURY REPORT 3:38 PM [facility] REPOSITORY [facility] Orthopaedics AND Sports Medicine [address] [place] [address] OFFICE VISIT Date of Service: 08/16/17 MR#: [id number] Acct: [id number] Name: ASHLEY LEE Rep #: [id number] : 1995 Provider: Cecilia Bermudez DO Age/Sex: 22/F Location: [facility] [place] Status: Signed Intake Intake Visit Reasons: LEFT ANKLE Is patient in pain?: Yes Pain scale (1-10): 2 Allergies No Known Allergies Allergy (Verified 08/16/17 13:09) Medications cetirizine 10 mg tablet 10 mg PO QDAY 08/16/17 [History Confirmed 08/16/17] [facility] Social History Smoking Status: Never smoker HPI LEFT ANKLE: Details: ASHLEY LEE is a 22 year old F here today for left ankle pain. Patient has rolled her ankle about 3 times in the past nine months. Patient has been getting her shoe caught while doing pole vault or walking and rolls her ankle. Her most recent sprain was 2 months ago. Patient feels a pop when she rolls it. Her ankle has bruising and swelling after she sprains it. Patient has pain over her lateral ankle. She now has soreness with running. Patient sees an ATC at her school and is doing strengthening exercise. Patient has tried taping but continues to roll her ankle. She has an ankle brace which is not helpful. Denies numbness, tingling or other associated symptoms. She had xrays which she didnt bring with her. ROS Musc Reports joint pain, Reports joint swelling Ortho Exam Left Ankle Skin: Yes CDI and Soft Tissue Swelling Exam: Yes Soft tissue swelling and TTP ATFL Compartments: soft Dorsiflexion 0-20: 20 degrees Plantar Flexion 0-40: 40 degrees Anterior Drawer: 3 Tests: Johnson Test: 1, Squeeze Test: 1 Motor: Ankle Dorsiflextion: 5, Ankle Plantar Flexion: 5, Ankle Eversion: 4, Ankle Inversion: 4, EHL: 5 Sensation: Deep Peroneal Nerve: I, Superficial Peroneal Nerve: I, Tibial Nerve: I, Sural Nerve: I, Saphenous Nerve: I Assessment AND Plan 1. Sprain of anterior talofibular ligament of left ankle, initial encounter S93.492A Plan X-rays were reviewed. There is no obvious fracture, dislocation, or lucency noted. Due to the chronicity of the sprains and the continued swelling we will order a pre op MRI. Instructed to wear a brace when active and work on strengthening and proprioception. The options for repair are internal brace to speed her return to sports with stable ankle. Reviewed the post op restrictions and limitations. Follow up after the MRI or sooner if pain, swelling, numbness or associated symptoms, or concerns develop. All questions answered. Patient in agreement of plan. Orders Orders: Plan Detail Other Orders Orders: Other Medications Discontinued: Coding Level of Care Code Off vis,est,level 4 Diagnoses Sprain of anterior talofibular ligament of left ankle, initial encounter S93.492A Encounter type: initial encounter Involved ligament of ankle: anterior talofibular ligament 08/16/17 1538 <Electronically signed by Cecilia Bermudez DO> Date Cecilia Bermudez DO Cosigner Signature: Date (if applicable) CC: ANKLE MIN 3 VIEWS Observed: 08/16/2017 Status: F Source: YURY 1:15 PM [facility] REPOSITORY [facility] Imaging Services [address] [place] [address] [place] [address] Ankle min 3 Views MR#: [id number] Acct: [id number] Name: ASHLEY LEE Rep #: [id number] : 1995 F 22 From: Rene Bearden MD PCP: Flakito Barrios MD Status: REG CLI Study: Ankle min 3 Views Date of Exam: 08/16/17 Exam# [id number] Ordering Dr: Cecilia Bermudez DO STUDY: X-RAY - LEFT ANKLE REASON FOR EXAM: Female, 22 years old. Injury with lateral ankle pain. TECHNIQUE: 3 view(s) of the ankle. COMPARISON: None. FINDINGS: Normal visualized distal tibia and fibula. Normal medial and lateral malleoli. Normal tibiotalar articulation and ankle mortise. Normal visualized talus and calcaneus. The visualized subtalar, talonavicular, calcaneocuboid and tarsal articulations are normal. The soft tissue structures are unremarkable. RAD/Ankle min 3 Views IMPRESSION: Normal x-ray examination of the ankle. Electronically Signed: Rene Bearden MD at 17:14 EDT , Service support , CC: Cecilia Bermudez DO; Flakito Barrios MD Tunneling Machine Operator: Signed ALLERGIES ALLERGIES DATE TYPE / CODE NAME / CODE REACTION SEVERITY SOURCE 10/05/2017 Drug adhesive Rash Unknown [place] Allergy/864328981(S tape/Y03025123 [facility]) 4(RXNORM) Hospital Repository 08/16/2017 Drug No Known Unknown [place] Allergy/833805459(S Allergies/F001 [facility]) 253199(RXNORM) Hospital Repository 10/01/2005 Miscellaneous OTHER HIVES [place] Allergy/193171461(S [facility] Main NOMED CT) [place] Repository ENCOUNTERS ENCOUNTERS ADMIT/DISCHARGE ACCOUNT ADMITTING ENCOUNTER LOCATION SOURCE NUMBER CLASS 02/01/2018 [id number] Ambulatory [facility] ing:LABSPEC Repository 02/01/2018/02/04/20 [id number] Ambulatory [address] Repository 01/13/2018/01/14/20 [id number] Ambulatory BMSBuilding:B [place] [facility] Repository 11/18/2017/11/19/19 [id number] Ambulatory BMSBuilding:B [place] 18 [facility] Repository 10/21/2017/10/22/19 [id number] Ambulatory BMSBuilding:B [place] 18 [facility] Repository 10/12/2017/10/13/19 [id number] Ambulatory [address] [place] [address] Hospital ing:SDC Repository 10/12/2017 [id number] Ambulatory BMSBuilding:B [place] MS.CF.[facility] Repository 09/20/2017/09/21/19 [id number] Ambulatory BMSBuilding:B [place] 18 [facility] Repository 09/06/2017 [id number] [facility] ing:MRI Repository 08/16/2017 [id number] Ambulatory [facility] ing:HPRAD Repository 08/16/2017/08/17/19 [id number] Ambulatory BMSBuilding:B [place] 18 [facility] Repository PAYERS PAYERS ENCOUNTER GUARANTOR PAYER SUBSCRIBER SOURCE 02/01/2018 ASHLEY Davis Primary LIZA [place] [id number] Insurance:MEDICAL MACHAMERDOB: [facility] [id number] [address]Kij: Number: Repository [id number] (HP) Date:9638-67-06FT [address] [place], [place] [address]WP: 02/01/2018 Secondary NOT GIVENUNK [place] Insurance:SELF PAY [facility] Number: Effective Repository Date:2018-02-01 01/13/2018 ASHLEY C Primary LIZA Gasparoster [id number] Insurance:MEDICAL MACHAMERDOB: [facility] [id number] [place] [address]Ndh: Number: Repository [id number] (HP) Date:9891-61-75NC [place] [phone]: 01/13/2018 Secondary NOT GIVENUNK [place] Insurance:SELF PAY [facility] Number: Effective Repository Date:2018-01-13 11/18/2017 ASHLEY C Primary LIZA [place] [id number] Insurance:MEDICAL MACHAMERDOB: [facility] [id number] County General Hospital [address]Qjk: Number: Repository [id number] (HP) Date:7009-07-35AL [place] [phone]: 11/18/2017 Secondary NOT GIVENUNK [place] Insurance:SELF PAY [facility] Number: Effective Repository Date:2017-11-07 10/21/2017 ASHLEY C Primary LIZA [place] [id number] Insurance:MEDICAL MACHAMERDOB: [address]03-07[facility] [address]Jlf: Number: Repository [id number] (HP) Date:5252-45-78DS [address] [place] [phone]: 10/21/2017 Secondary NOT GIVENUNK [place] Insurance:SELF PAY [facility] Number: Effective Repository Date:2017-10-21 10/12/2017 ASHLEY Davis Primary LIZA L [place] [id number] Insurance:MEDICAL MACHAMERDOB: Community CANAL [facility] [id number] County General Hospital [address]Rmb: Number: Repository [id number] (HP) Date:4278-66-68FO [address] [address]WB: 10/12/2017 Secondary NOT GIVENUNK [place] Insurance:SELF PAY [facility] Number: Effective Repository Date:2017-09-28 10/12/2017 ASHLEY Davis Primary LIZA Stevan [place] [id number] Insurance:MEDICAL MACHAMERDOB: [facility] CANAL [facility] [id number] County General Hospital [address]Ycf: Number: Repository [id number] (HP) Date:5401-42-92OT [address] [phone]: 10/12/2017 Secondary NOT GIVENUNK [place] Insurance:SELF PAY [facility] Number: Effective Repository Date:2017-10-12 09/20/2017 ASHLEY MARIE Primary LIZA Stevan [place] [id number] Insurance:MEDICAL MACHAMERDOB: [facility] [id number] County General Hospital [address]Qjs: Number: Repository [id number] (HP) Date:6690-90-42ZH [address] [phone]: 09/20/2017 Secondary NOT GIVENUNK [place] Insurance:SELF PAY [facility] Number: Effective Repository Date:2017-09-20 09/06/2017 ASHLEY CYNTHIA Primary LIZA Cotton [id number] Insurance:MEDICAL MACHAMERDOB: [facility] CANAL [facility] [id number] County General Hospital [address]Fun: Number: Repository [id number] (HP) Date:5521-90-34EX [place] [phone]: 09/06/2017 Secondary NOT GIVENUNK [place] Insurance:SELF PAY [facility] Number: Effective Repository Date:2017-09-05 08/16/2017 ASHLEYLETTY MARIE Primary LIZA [place] [id number] Insurance:MEDICAL MACHAMERDOB: [facility] [place] [id number] County General Hospital [address]Amd: Number: Repository [id number] (HP) Date:5690-29-07RD [place] [phone]: 08/16/2017 Secondary NOT GIVENUNK [place] Insurance:SELF PAY [facility] Number: Effective Repository Date:2017-08-16 08/16/2017 ASHLEYLETTY Cotton [id number] Insurance:MEDICAL MACHAMERDOB: [facility] [place] [id number] County General Hospital [address]Wqf: Number: Repository [id number] (HP) Date:7575-97-45UN [address] [place] [phone]: 08/16/2017 Secondary NOT GIVENUNK [place] Insurance:SELF PAY [facility] Number: Effective Repository Date:2017-08-02
== END ==
PROVIDERS: Visit Provider Obstetrics & Gynecology
DX: Z11.3 Encounter for screening for infections with a predominantly sexual mode of transmission (principal)
CPT/HCPCS: 87491; 87591

== ENCOUNTER → 2019-01-31 15:17 | Outpatient (CLI) | payer OTHER, SELFPAY | PROVIDERS: Visit Provider Obstetrics & Gynecology | DX: Z12.4 Encounter for screening for malignant neoplasm of cervix (principal); Z11.3 Encounter for screening for infections with a predominantly sexual mode of transmission ==